=== PATIENT | male | born 1990 | race African-American/Black ===

== ENCOUNTER 2023-10-11 11:55 | Emergency (ER) | payer BC, OTHER ==
[2023-10-11] MEDS ORDERED: Bacitracin 1 PK ONE (12:25)
== END 2023-10-11 12:32 | disposition home or self-care (01) ==
LOC: NAV ERS 11:55
DX: Z48.01 Encounter for change or removal of surgical wound dressing (principal); F17.290 Nicotine dependence, other tobacco product, uncomplicated
CPT/HCPCS: 99282